=== PATIENT | male | born 2000 | race African-American/Black ===

== ENCOUNTER 2020-03-11 07:09 | Emergency (ER) | payer OTHER ==
[~2020-03-11] VITALS: Ht 177.8 cm; Wt 68.6 kg
[2020-03-11 07:16] VITALS: BP 132/88; TEMP 98.2
[2020-03-11 09:08] LABS: BASO % 0.8 % (0.0-2.0); EOS # 0.1 (0.0-0.7); EOS % 1.7 % (0-4.0); GRAN # 1.7 (1.4-6.5); GRAN % 46.8 % (42.2-75.2); HEMATOCRIT 43.4 % (36.0-47.0); HEMOGLOBIN 14.1 g/dl (12.5-16.1); LYMPH # 1.5 (1.2-3.4); LYMPH % 41.7 % (20.0-51.0); MEAN CELL VOLUME 85 fl (80.0-95.0); MEAN CORPUSCULAR HEMOGLOBIN 28 pg (26.0-32.0); MEAN CORPUSCULAR HGB CONC 33 g/dl (33.0-37.0); MONO # 0.3 (0.1-0.6); MONO % 8.7 % (1.7-9.3); PLATELET COUNT 262 K/mm3 (130-400); RED BLOOD COUNT 5.08 M/mm3 (4.20-5.60); REDCELL DISTRIBUTION WIDTH-CV 12.9 % (11.5-14.5)
[2020-03-11 09:21] LABS: ALANINE AMINOTRANSFERASE 15 U/L (4-49); ALBUMIN 4.5 gm/dL (3.5-5.0); ALKALINE PHOSPHATASE 102 U/L (50-136); ANION GAP 10 mmol/L (7-16); AST,SGOT 27 U/L (15-37); BLOOD UREA NITROGEN 10 mg/dL (9-20); CALCIUM 9.2 mg/dL (8.4-10.2); CARBON DIOXIDE 26 mmol/L (22-30); CHLORIDE 104 mmol/L (98-107); GLUCOSE 101 mg/dL (74-106); POTASSIUM 3.6 mmol/L (3.4-5.0); SODIUM 140 mmol/L (137-145)
[2020-03-11 09:28] LABS: C-REACTIVE PROTEIN < 0.5 mg/dL (0.0-0.9)
[2020-03-11 09:30] LABS: TROPONIN-I < 0.012 ng/mL (0.000-0.035)
[2020-03-11] MEDS ORDERED: NAPROSYN500 MG PO (10:13)
[2020-03-11 10:15] VITALS: PULSE 72
== END 2020-03-11 10:15 | disposition home or self-care (01) ==
LOC: COL.ER 07:09
PROVIDERS: Nurse Practitioner Primary Care
DX: R07.89 Other chest pain (principal); Z88.1 Allergy status to other antibiotic agents